=== PATIENT | male | born 1975 | race Caucasian/White ===

== ENCOUNTER → 2020-05-25 | Outpatient (CLI) | payer OTHER ==
[~2020-05-25] MED LIST: AMLODIPINE BESY10 MG PO; AURYXIA210 MG PO; CALCITRIOL0.5 MCG PO; CARAFATE 1 GM TA1 GM PO; CINACALCET HCL30 MG PO; GABAPENTIN800 MG PO; K-DUR TAB 20 M20 MEQ PO; LASIX80 MG PO; LOSARTAN POTAS100 MG PO; MINOCYCLINE PO; MUPIROCIN; OMNICEF 300 MG300 MG PO; PRILOSEC OTC20 MG PO; ZAROXOLYN/DIULO5 MG PO
[2020-05-26 08:12] LABS: CREATININE, URINE 75.4 mg/dL (Not Estab.)
[2020-05-28 04:06] LABS: AMPHETAMINES, URINE Negative ng/mL (Cutoff=1000); BARBITURATE Negative ng/mL (Cutoff=200); BENZODIAZEPINES Negative ng/mL (Cutoff=200); CANNABINOIDS Negative ng/mL (Cutoff=20); COCAINE (METABOLITE) Negative ng/mL (Cutoff=300); CREATININE 81.6 mg/dL (20.0-300.0); MEPERIDINE Negative ng/mL (Cutoff=200); METHADONE Negative ng/mL (Cutoff=300); OPIATES Negative ng/mL (Cutoff=300); PHENCYCLIDINE Negative ng/mL (Cutoff=25); PROPOXYPHENE Negative ng/mL (Cutoff=300)
== END ==
LOC: LAB 08:29
PROVIDERS: Family Medicine
DX: M25.552 Pain in left hip (principal); M54.5 Low back pain; E11.42 Type 2 diabetes mellitus with diabetic polyneuropathy; E78.5 Hyperlipidemia, unspecified; M89.8X8 Other specified disorders of bone, other site; Z79.899 Other long term (current) drug therapy; Z98.890 Other specified postprocedural states
CPT/HCPCS: 36415; 72110; 73502; 80061; 80076; 80307; 82043; 82570

== ENCOUNTER → 2020-06-05 | Outpatient (CLI) | payer OTHER | LOC: KOH-I 13:00 | DX: E11.621 Type 2 diabetes mellitus with foot ulcer (principal); L97.529 Non-pressure chronic ulcer of other part of left foot with unspecified severity | CPT/HCPCS: 73630 ==

== ENCOUNTER → 2020-06-20 | Outpatient (CLI) | payer OTHER | LOC: WCC 08:00 | DX: E11.621 Type 2 diabetes mellitus with foot ulcer (principal); L97.529 Non-pressure chronic ulcer of other part of left foot with unspecified severity; S91.159A Open bite of unspecified toe(s) without damage to nail, initial encounter; I12.0 Hypertensive chronic kidney disease with stage 5 chronic kidney disease or end stage renal disease; E11.22 Type 2 diabetes mellitus with diabetic chronic kidney disease; N18.6 End stage renal disease; D63.1 Anemia in chronic kidney disease; E11.42 Type 2 diabetes mellitus with diabetic polyneuropathy; Z99.2 Dependence on renal dialysis; Z87.891 Personal history of nicotine dependence; Z88.6 Allergy status to analgesic agent; Z88.8 Allergy status to other drugs, medicaments and biological substances; Z79.4 Long term (current) use of insulin; Z79.2 Long term (current) use of antibiotics; Z79.899 Other long term (current) drug therapy; W54.0XXA Bitten by dog, initial encounter | CPT/HCPCS: G0463 ==

== ENCOUNTER → 2020-06-28 | Outpatient (CLI) | payer OTHER | LOC: EXRD 11:00 | DX: E11.22 Type 2 diabetes mellitus with diabetic chronic kidney disease (principal); W54.0XXA Bitten by dog, initial encounter; E11.42 Type 2 diabetes mellitus with diabetic polyneuropathy; E11.621 Type 2 diabetes mellitus with foot ulcer; I10 Essential (primary) hypertension; Z79.4 Long term (current) use of insulin | CPT/HCPCS: 93925 ==

== ENCOUNTER → 2020-07-11 | Outpatient (CLI) | payer OTHER | LOC: WCC 10:52 | DX: E11.621 Type 2 diabetes mellitus with foot ulcer (principal); L97.529 Non-pressure chronic ulcer of other part of left foot with unspecified severity; S91.15 Open bite of toe without damage to nail; I12.0 Hypertensive chronic kidney disease with stage 5 chronic kidney disease or end stage renal disease; E11.22 Type 2 diabetes mellitus with diabetic chronic kidney disease; N18.6 End stage renal disease; E11.42 Type 2 diabetes mellitus with diabetic polyneuropathy; Z99.2 Dependence on renal dialysis; Z88.6 Allergy status to analgesic agent; Z88.8 Allergy status to other drugs, medicaments and biological substances; Z79.4 Long term (current) use of insulin; Z79.2 Long term (current) use of antibiotics; Z79.899 Other long term (current) drug therapy; W54.0XXD Bitten by dog, subsequent encounter ==

== ENCOUNTER → 2020-07-24 | Outpatient (CLI) | payer OTHER | LOC: WCC 10:56 | DX: S91.15 Open bite of toe without damage to nail (principal); W54.0XXD Bitten by dog, subsequent encounter; E11.42 Type 2 diabetes mellitus with diabetic polyneuropathy; E11.621 Type 2 diabetes mellitus with foot ulcer; I10 Essential (primary) hypertension; Z79.4 Long term (current) use of insulin | CPT/HCPCS: 97597 ==

== ENCOUNTER 2020-08-15 13:39 | Inpatient (IN) | payer OTHER ==
[~2020-08-15] VITALS: Ht 182.9 cm; Wt 95.3 kg
[2020-08-15 15:50] LABS: HEMOGLOBIN 12.5 gm/dl (14.0-17.5); RED BLOOD COUNT 4.07 M/UL (4.20-5.50)
[2020-08-15 18:49] LABS: BODY FLUID SOURCE PERITONEAL
[2020-08-15 18:50] LABS: MONONUCLEAR CELLS 8 (75-100); POLYMORPHONUCLEAR % 92 (0-25); RBC (AUTOMATED) 1000 (0-100000); WBC (AUTOMATED) 25680 (0-500)
[2020-08-15 19:06] LABS: LDH, BODY FLUID 84 U/L
[2020-08-15 19:07] LABS: TOTAL PROTEIN, BODY FLUID 0.5 gm/dL
[2020-08-15] MEDS ORDERED: CARAFATE 1 GM TA1 GM PO (21:52)
[2020-08-15] MEDS ORDERED: CINACALCET HCL30 MG PO (21:55)
[2020-08-15] MEDS ORDERED: CALCITRIOL0.5 MCG PO (21:55)
[2020-08-15] MEDS ORDERED: OMNICEF 300 MG300 MG PO (21:56)
[2020-08-15] MEDS ORDERED: AURYXIA210 MG PO (21:56)
[2020-08-15] MEDS ORDERED: K-DUR TAB 20 M20 MEQ PO (21:57)
[2020-08-15] MEDS ORDERED: AMLODIPINE BESY10 MG PO (21:58)
[2020-08-15] MEDS ORDERED: MINOCYCLINE PO (22:01)
[2020-08-15] MEDS ORDERED: LASIX80 MG PO (22:02)
[2020-08-15] MEDS ORDERED: LOSARTAN POTAS100 MG PO (22:02)
[2020-08-15] MEDS ORDERED: ZAROXOLYN/DIULO5 MG PO (22:02)
[2020-08-15] MEDS ORDERED: PRILOSEC OTC20 MG PO (22:03)
[2020-08-15] MEDS ORDERED: MUPIROCIN (22:04)
[2020-08-16 04:41] LABS: HEMOGLOBIN 11.3 gm/dl (14.0-17.5); RED BLOOD COUNT 3.74 M/UL (4.20-5.50)
[2020-08-16 04:42] LABS: WHITE BLOOD COUNT 9.4 K/UL (4.5-11.0)
[2020-08-17 03:51] LABS: HEMOGLOBIN 10.8 gm/dl (14.0-17.5); RED BLOOD COUNT 3.61 M/UL (4.20-5.50); WHITE BLOOD COUNT 7.8 K/UL (4.5-11.0)
[2020-08-17] MEDS ORDERED: GABAPENTIN800 MG PO (21:52)
[2020-08-18 05:10] LABS: HEMOGLOBIN 10.2 gm/dl (14.0-17.5); RED BLOOD COUNT 3.43 M/UL (4.20-5.50); WHITE BLOOD COUNT 8.3 K/UL (4.5-11.0)
[2020-08-18 11:27] LABS: BODY FLUID SOURCE PERITONEAL; MONONUCLEAR CELLS 22 %; POLYMORPHONUCLEAR 78 %; RBC (AUTOMATED) 200 10^6; WBC (AUTOMATED) 1101 10^3
[2020-08-19 03:43] LABS: HEMOGLOBIN 10.6 gm/dl (14.0-17.5); RED BLOOD COUNT 3.51 M/UL (4.20-5.50)
[2020-08-19 03:54] LABS: WHITE BLOOD COUNT 6.2 K/UL (4.5-11.0)
--- NOTE | 2020-08-19 04:44 | NUR ---
PT HAS A POTASSIUM OF 3.3. MD IS AWARE AND ORDERED NOT TO GIVE POTASSIUM.
[2020-08-20 03:33] LABS: HEMOGLOBIN 10.8 gm/dl (14.0-17.5); RED BLOOD COUNT 3.56 M/UL (4.20-5.50); WHITE BLOOD COUNT 6.1 K/UL (4.5-11.0)
== END 2020-08-20 18:50 | disposition home or self-care (01) | DRG 919 ==
LOC: ER1 13:39 → CDU 17:47 → M/S 17:47
PROVIDERS: Emergency Medicine; Physician Assistant Medical; ADMIT Internal Medicine
PROC: 3E1M39Z Irrigation of Peritoneal Cavity using Dialysate, Percutaneous Approach (ICD-10-PCS; principal; 2020-08-15)
DX: T85.71XA Infection and inflammatory reaction due to peritoneal dialysis catheter, initial encounter (principal); A41.9 Sepsis, unspecified organism; N18.6 End stage renal disease; J18.9 Pneumonia, unspecified organism; K65.2 Spontaneous bacterial peritonitis; I12.0 Hypertensive chronic kidney disease with stage 5 chronic kidney disease or end stage renal disease; E87.2 Acidosis; E87.1 Hypo-osmolality and hyponatremia; I31.9 Disease of pericardium, unspecified; I31.3 Pericardial effusion (noninflammatory); B96.89 Other specified bacterial agents as the cause of diseases classified elsewhere; E87.70 Fluid overload, unspecified; E87.6 Hypokalemia; E83.39 Other disorders of phosphorus metabolism; E78.5 Hyperlipidemia, unspecified; E83.42 Hypomagnesemia; H54.8 Legal blindness, as defined in USA; Z20.822 Contact with and (suspected) exposure to COVID-19; E87.5 Hyperkalemia; E11.22 Type 2 diabetes mellitus with diabetic chronic kidney disease; E83.51 Hypocalcemia; Z79.4 Long term (current) use of insulin; Z72.0 Tobacco use; Z88.6 Allergy status to analgesic agent; Z83.3 Family history of diabetes mellitus; Z99.2 Dependence on renal dialysis
CPT/HCPCS: 36415; 71045; 80048; 80053; 80202; 81001; 82550; 82553; 82962; 83036; 83605; 83615; 83690; 83735; 83874; 83880; 83986; 84100; 84132; 84157; 84484; 85025; 85027; 85610; 85730; 87040; 87070; 87077; 87186; 87205; 89051; 90945; 90947; 93005; 93308; 96374; 96375; 96376; 99285; J0456; J0696; J1644; J2185; J2270; J2405; J2550; J3370; J7030; J7040; J7050; J7070; U0002

== ENCOUNTER 2020-09-05 17:37 | Emergency (ER) | payer OTHER ==
[2020-09-05 18:57] LABS: HEMOGLOBIN 14.9 gm/dl (14.0-17.5); RED BLOOD COUNT 4.82 M/UL (4.20-5.50); WHITE BLOOD COUNT 9.6 K/UL (4.5-11.0)
[2020-09-05 20:22] LABS: BODY FLUID SOURCE PERITONEAL
[2020-09-05 20:23] LABS: MONONUCLEAR CELLS 89 %; POLYMORPHONUCLEAR 11 %; RBC (AUTOMATED) 100 10^6; WBC (AUTOMATED) 83 10^3
== END 2020-09-05 21:22 | disposition home or self-care (01) ==
LOC: ER1 17:37
PROVIDERS: Emergency Medicine; Physician Assistant
DX: K65.9 Peritonitis, unspecified (principal); E87.6 Hypokalemia; E78.5 Hyperlipidemia, unspecified; I12.0 Hypertensive chronic kidney disease with stage 5 chronic kidney disease or end stage renal disease; E11.22 Type 2 diabetes mellitus with diabetic chronic kidney disease; N18.6 End stage renal disease; Z99.2 Dependence on renal dialysis; Z88.6 Allergy status to analgesic agent; Z88.8 Allergy status to other drugs, medicaments and biological substances; Z79.899 Other long term (current) drug therapy
CPT/HCPCS: 71045; 71250; 80053; 82150; 83605; 83690; 85025; 87040; 87070; 87205; 89051; 90945; 99284

== ENCOUNTER → 2020-10-16 | Outpatient (CLI) | payer OTHER | LOC: EMI 12:55 | DX: M51.16 Intervertebral disc disorders with radiculopathy, lumbar region (principal) | CPT/HCPCS: 72148 ==

== ENCOUNTER → 2020-12-25 | Day surgery (SDC) | payer OTHER ==
[~2020-12-25] VITALS: Ht 182.9 cm; Wt 93.4 kg
[~2020-12-25] MED LIST changes: +CEFDINIR300 MG PO; +CLINDAMYCIN PHO60 GM TP; +COREG 25MG TAB25 MG PO; +FLUTICASONE PRO15 G1 TP; +PROTONIX 40 MG40 M1 PO; +ZOFRAN 4 MG TAB4 MG PO
== END | disposition home or self-care (01) ==
LOC: OR 06:41
DX: K21.00 Gastro-esophageal reflux disease with esophagitis, without bleeding (principal); K22.10 Ulcer of esophagus without bleeding; K29.61 Other gastritis with bleeding; K25.4 Chronic or unspecified gastric ulcer with hemorrhage; K29.80 Duodenitis without bleeding; I12.0 Hypertensive chronic kidney disease with stage 5 chronic kidney disease or end stage renal disease; E11.22 Type 2 diabetes mellitus with diabetic chronic kidney disease; N18.6 End stage renal disease; Z99.2 Dependence on renal dialysis; R10.10 Upper abdominal pain, unspecified; E11.42 Type 2 diabetes mellitus with diabetic polyneuropathy; Z20.822 Contact with and (suspected) exposure to COVID-19; Z88.6 Allergy status to analgesic agent
CPT/HCPCS: 82962; J2704; J7040

== ENCOUNTER → 2021-03-26 | Outpatient (CLI) | payer OTHER ==
[~2021-03-26] MED LIST changes: +CRESTOR 10 MG T10 MG PO; +HYDROCODON-ACE1 EAC4 PO; +PROAIR HFA8.5 GM INH
== END ==
LOC: EXRD 13:06
DX: R50.9 Fever, unspecified (principal); R91.8 Other nonspecific abnormal finding of lung field
CPT/HCPCS: 71046

== ENCOUNTER 2021-03-29 14:06 | Inpatient (IN) | payer OTHER ==
[~2021-03-29] VITALS: Ht 185.4 cm; Wt 94.8 kg
[~2021-03-29 14:06] MED LIST changes: -CRESTOR 10 MG T10 MG PO; -HYDROCODON-ACE1 EAC4 PO; -PROAIR HFA8.5 GM INH
[2021-03-29 14:42] LABS: RED BLOOD COUNT 3.12 M/UL (4.20-5.50); WHITE BLOOD COUNT 15.1 K/UL (4.5-11.0)
[2021-03-29 22:58] LABS: BORDETELLA PARAPERTUSSIS Not Detected (Not Detectd); BORDETELLA PERTUSSIS Not Detected (Not Detectd); CHLAMYDIA PNEUMONIAE Not Detected (Not Detectd); CORONAVIRUS HKU1 Not Detected (Not Detectd); CORONAVIRUS NL63 Not Detected (Not Detectd); CORONAVIRUS OC43 Not Detected (Not Detectd); CORONOAVIRUS 229E Not Detected (Not Detectd); HUMAN METAPNEUMOVIRUS Not Detected (Not Detectd); HUMAN RHINOVIRUS/ENTEROVIRUS Not Detected (Not Detectd); INFLUENZA A Not Detected (Not Detectd); INFLUENZA B Not Detected (Not Detectd); MYCOPLASMA PNEUMONIAE Not Detected (Not Detectd); PARAINFLUENZA VIRUS 1 Not Detected (Not Detectd); PARAINFLUENZA VIRUS 2 Not Detected (Not Detectd); PARAINFLUENZA VIRUS 3 Not Detected (Not Detectd); PARAINFLUENZA VIRUS 4 Not Detected (Not Detectd); RESPIRATORY SYNCYTIAL VIRUS Not Detected (Not Detectd)
[2021-03-29] MEDS ORDERED: PROAIR HFA8.5 GM INH (23:30)
[2021-03-29] MEDS ORDERED: CRESTOR 10 MG T10 MG PO (23:30)
[2021-03-29] MEDS ORDERED: HYDROCODON-ACE1 EAC4 PO (23:31)
[2021-03-30 00:16] LABS: SARS-CoV-2 NOT DETECTED (Not Detectd)
[2021-03-30 02:37] LABS: HEMOGLOBIN 8.2 gm/dl (14.0-17.5); RED BLOOD COUNT 2.87 M/UL (4.20-5.50); WHITE BLOOD COUNT 13.7 K/UL (4.5-11.0)
--- NOTE | 2021-03-30 13:41 | NUR ---
CALLED REPORT AND TRANSFERRED PT TO [phone], REPORT TO [facility] AND TECH TRANSFERRED PT
[2021-03-31 04:50] LABS: HEMOGLOBIN 8.2 gm/dl (14.0-17.5); RED BLOOD COUNT 2.78 M/UL (4.20-5.50)
[2021-03-31 04:58] LABS: WHITE BLOOD COUNT 10.2 K/UL (4.5-11.0)
[2021-03-31] MEDS ORDERED: AUGMENTIN 500-500 MG PO (11:14)
[2021-04-02 14:11] LABS: ORGANISM ID Not indicated. (.); SPECIMEN SOURCE Urine (.); STREPTOCOCCUS PNEUMONIAE AG Negative (Negative)
== END 2021-03-31 12:57 | disposition home or self-care (01) | DRG 871 ==
LOC: ER1 14:06 → CDU 19:13 → 3 EAST 22:49 → MED SURG 4 03-30 13:32
PROVIDERS: Emergency Medicine; Internal Medicine; Physician Assistant; ADMIT Internal Medicine
DX: A41.9 Sepsis, unspecified organism (principal); J18.9 Pneumonia, unspecified organism; N18.6 End stage renal disease; J15.9 Unspecified bacterial pneumonia; I12.0 Hypertensive chronic kidney disease with stage 5 chronic kidney disease or end stage renal disease; E87.1 Hypo-osmolality and hyponatremia; Z20.822 Contact with and (suspected) exposure to COVID-19; D63.1 Anemia in chronic kidney disease; E87.6 Hypokalemia; E78.5 Hyperlipidemia, unspecified; E11.22 Type 2 diabetes mellitus with diabetic chronic kidney disease; Z99.2 Dependence on renal dialysis; Z98.890 Other specified postprocedural states; Z88.8 Allergy status to other drugs, medicaments and biological substances; Z87.891 Personal history of nicotine dependence; Z79.82 Long term (current) use of aspirin; Z79.899 Other long term (current) drug therapy
CPT/HCPCS: 36415; 71045; 71250; 80053; 80202; 82550; 82553; 82962; 83605; 83735; 84132; 84484; 85025; 86140; 86738; 87040; 87278; 87633; 87899; 93005; 94640; 94664; 96372; 96374; 99285; J1644; J2185; J3370; J7070; U0002

== ENCOUNTER → 2021-04-30 | Outpatient (CLI) | payer OTHER ==
[~2021-04-30] MED LIST changes: +AUGMENTIN 500-500 MG PO; +CRESTOR 10 MG T10 MG PO; +HYDROCODON-ACE1 EAC4 PO; +PROAIR HFA8.5 GM INH
== END ==
LOC: LAB 13:48
DX: E87.6 Hypokalemia (principal)
CPT/HCPCS: 36415; 84132

== ENCOUNTER → 2021-06-27 | Outpatient (CLI) | payer OTHER | LOC: WCC 06:57 | DX: E11.621 Type 2 diabetes mellitus with foot ulcer (principal); L97.521 Non-pressure chronic ulcer of other part of left foot limited to breakdown of skin; L97.522 Non-pressure chronic ulcer of other part of left foot with fat layer exposed; S01.302A Unspecified open wound of left ear, initial encounter; S51.802A Unspecified open wound of left forearm, initial encounter; E11.42 Type 2 diabetes mellitus with diabetic polyneuropathy; E11.22 Type 2 diabetes mellitus with diabetic chronic kidney disease; I12.0 Hypertensive chronic kidney disease with stage 5 chronic kidney disease or end stage renal disease; N18.6 End stage renal disease; Z99.2 Dependence on renal dialysis; F42.4 Excoriation (skin-picking) disorder; Z76.82 Awaiting organ transplant status; Z88.8 Allergy status to other drugs, medicaments and biological substances; Z87.891 Personal history of nicotine dependence | CPT/HCPCS: 97597 ==

== ENCOUNTER → 2021-08-14 | Day surgery (SDC) | payer MEDICARE, OTHER | END | disposition home or self-care (01) | LOC: OR 06:31 | DX: Z12.11 Encounter for screening for malignant neoplasm of colon (principal); K64.0 First degree hemorrhoids; K29.80 Duodenitis without bleeding; K31.9 Disease of stomach and duodenum, unspecified; I12.0 Hypertensive chronic kidney disease with stage 5 chronic kidney disease or end stage renal disease; E11.22 Type 2 diabetes mellitus with diabetic chronic kidney disease; N18.6 End stage renal disease; Z99.2 Dependence on renal dialysis; E78.5 Hyperlipidemia, unspecified; K21.00 Gastro-esophageal reflux disease with esophagitis, without bleeding; E66.3 Overweight; Z68.27 Body mass index [BMI] 27.0-27.9, adult; Z88.6 Allergy status to analgesic agent; Z88.8 Allergy status to other drugs, medicaments and biological substances; Z79.899 Other long term (current) drug therapy | CPT/HCPCS: 43239; G0121; 82962; J2704; J7040 ==